=== PATIENT | female | born 1950 | race Caucasian/White ===

== ENCOUNTER → 2017-02-07 | Outpatient (CLI) | payer OTHER | END | disposition home or self-care (01) | LOC: GMAL 10:12 | PROVIDERS: ATTEND Family Medicine | DX: D51.3 Other dietary vitamin B12 deficiency anemia (principal); R53.83 Other fatigue; E55.9 Vitamin D deficiency, unspecified ==

== ENCOUNTER → 2017-06-02 | Outpatient (CLI) | payer MEDICARE, OTHER | LOC: GMA 10:56 | PROVIDERS: ATTEND Nurse Practitioner Family | DX: D50.8 Other iron deficiency anemias (principal); R53.81 Other malaise ==

== ENCOUNTER → 2018-01-09 | Outpatient (CLI) | payer MEDICARE, OTHER ==
--- NOTE | 2018-01-09 09:44 | RAD ---
EXAM DESCRIPTION: Pelvis CLINICAL HISTORY: 67 years Female, HIP PAIN COMPARISON: None. TECHNIQUE: Single frontal view of the pelvis and proximal femurs FINDINGS: Degenerative disc disease is seen in the lower L-spine especially L4-5. Bones of the pelvic ring appear intact. Proximal femurs appear normal. No fracture or lytic lesion. Mild degenerative spurring of the inferior acetabular regions bilaterally as well as the superolateral acetabular margins. IMPRESSION: Degenerative changes as described. Electronically signed by: Issa Hardin MD 01/09/2018 9:43 AM [facility]
--- NOTE | 2018-01-09 09:47 | RAD ---
EXAM DESCRIPTION: Knee,Left Complete CLINICAL HISTORY: 67 years, Female, PAIN COMPARISON: None TECHNIQUE: Three views of the left knee FINDINGS: No fracture or dislocation. Bones appear normally mineralized with normal trabecular pattern. Markedly narrowed medial compartment on frontal view. Lateral compartment appears well preserved. Spurring is seen along the medial joint line and at the tibial spines. Articular surface irregularity of the medial femoral condyle is noted. Lateral view shows normal position of the patella. Large posterior superior patellar spur is seen with prominent anterosuperior patellar enthesopathy. No suprapatellar knee joint effusion. Normal contour of quadriceps and patellar tendons. No abnormal patellar tilt or subluxation on patellar sunrise view. Spurring is prominent. IMPRESSION: Degenerative changes as described. Electronically signed by: Issa Hardin MD 01/09/2018 9:46 AM [facility]
--- NOTE | 2018-01-09 09:50 | RAD ---
EXAM DESCRIPTION: Knee,Right Complete CLINICAL HISTORY: 67 years, Female, PAIN COMPARISON: None TECHNIQUE: 4 views of the right knee FINDINGS: No fracture or dislocation. Bones appear normally mineralized with normal trabecular pattern. Abnormally narrowed medial compartment is noted with preservation of the lateral compartment on the frontal view. Irregular surface of the medial femoral condyle is noted. There is medial joint line spurring and tibial spine spurring with small osteophyte at the lateral tibial plateau. Lateral view shows normal position of the patella. Large superior patellar osteophyte is seen. Anterior superior patellar enthesopathy is present. No suprapatellar knee joint effusion. Normal contour of quadriceps and patellar tendons. Mild lateral tilt of the patella is noted without subluxation. Moderate spurring is present at the anterior femoral trochlear regions and posterior patella on the patellar sunrise view. IMPRESSION: Degenerative osteoarthrosis as described. Electronically signed by: Issa Hardin MD 01/09/2018 9:49 AM [facility]
== END ==
LOC: RAD 08:23
PROVIDERS: ATTEND Orthopaedic Surgery
DX: M25.551 Pain in right hip (principal); M25.552 Pain in left hip

== ENCOUNTER → 2018-04-11 | Outpatient (CLI) | payer MEDICARE ==
--- NOTE | 2018-04-11 11:39 | RAD ---
EXAM DESCRIPTION: Hand,Left 3 Views CLINICAL HISTORY: PAIN COMPARISON: None Available. TECHNIQUE: AP, LATERAL, AND OBLIQUE FINDINGS: The visualized bones appear well mineralized. No acute fracture or dislocation. The soft tissues appear grossly unremarkable. Mild degenerative changes are identified in the distal interphalangeal joints. 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 Otherwise normal radiographs of the left hand. Electronically signed by: Nany Yarbrough MD 04/11/2018 11:38 AM CDT
== END ==
LOC: RAD 09:12
PROVIDERS: ATTEND Orthopaedic Surgery
DX: M19.042 Primary osteoarthritis, left hand (principal); M79.642 Pain in left hand

== ENCOUNTER → 2019-09-06 | Outpatient (CLI) | payer MEDICARE ==
--- NOTE | 2019-09-08 07:49 | US ---
EXAM DESCRIPTION: Pelvis Transvaginal: Ultrasound. CLINICAL HISTORY: 69 years Female POSTMENOPAUSAL BLEEDING COMPARISON: None TECHNIQUE: Endovaginal scanning; Putnam-scale and Doppler modes. FINDINGS: Uterus 6.3 x 4.2 x 3.1 cm 42.8 mL.. Endometrial thickness is 5.6 mm. Calcification with shadowing. Myometrium appears heterogeneous.. Complex lesion with possible cystic and solid components and mostly posterior acoustic enhancement measuring 9.1 x 9.7 x 8.8 mm. Hyperechoic mass anterior measuring 1.6 x 1.7 x 1.1 cm, possibly abutting the endometrium. Uterus not retroflexed. Cervix unremarkable. Cul-de-sac contains no fluid. Bilateral ovaries not seen. No adnexal mass or free fluid. IMPRESSION: Complicated appearing fibroid in the uterus measuring less than 1 cm. Second fibroid measures 1.7 cm. Slightly calcified and thickened endometrium postmenopausal woman. Gynecological consult recommended. Ovaries not seen. Electronically signed by: Matias Moody MD 09/08/2019 7:46 AM CDT
== END ==
LOC: US 13:26
PROVIDERS: ATTEND Nurse Practitioner Family
DX: N95.0 Postmenopausal bleeding (principal); D25.9 Leiomyoma of uterus, unspecified; R93.89 Abnormal findings on diagnostic imaging of other specified body structures

== ENCOUNTER → 2020-03-24 | Outpatient (CLI) | payer MEDICARE | LOC: GMAL 15:29 | PROVIDERS: ATTEND Family Medicine | DX: Z79.899 Other long term (current) drug therapy (principal); I10 Essential (primary) hypertension; R30.0 Dysuria; R73.9 Hyperglycemia, unspecified ==